=== PATIENT | female | born 2000 | race Caucasian/White ===

== ENCOUNTER 2022-07-07 07:24 | Emergency (ER) | payer SELFPAY ==
[~2022-07-07] VITALS: Wt 68.0 kg
[~2022-07-07 07:24] MED LIST: BACTRIM DS 8001 TA1 PO; DURICEF500 MG PO; MEDROL DOSEPAK4 MG PO; NAPROSYN500 MG PO
[2022-07-07 08:18] LABS: BILIRUBIN Negative (Negative); BLOOD 1+ (Negative); CLARITY Clear (Clear); COLOR Yellow (Yellow); GLUCOSE Negative (Negative); KETONE Trace (Negative); LEUKO ESTERASE 1+ (Negative); NITRITE Negative (Negative); PH 5.5 (4.5-8.0); SPECIFIC GRAVITY 1.025 (1.001-1.030)
[2022-07-07 08:58] LABS: BACTERIA 2+; CALCIUM OXALATE CRYSTALS 1+; EPITHELIAL CELLS 51-100; RBC 16-20 rbc/hpf (0-2)
[2022-07-07] MEDS ORDERED: AMOX-CLAV 875-1 EACH PO (09:03)
== END 2022-07-07 09:08 | disposition home or self-care (01) ==
LOC: ED 07:24
PROVIDERS: Internal Medicine
DX: N39.0 Urinary tract infection, site not specified (principal); Z88.2 Allergy status to sulfonamides

== ENCOUNTER 2022-07-30 06:41 | Emergency (ER) | payer SELFPAY ==
[~2022-07-30] VITALS: Ht 170.1 cm; Wt 70.3 kg
[~2022-07-30 06:41] MED LIST changes: +AMOX-CLAV 875-1 EACH PO
[2022-07-30] MEDS ORDERED: PREDNISONE20 M1 PO ×2 (07:06→07:07)
[2022-07-30] MEDS ORDERED: CEPHALEXIN500 M1 PO (07:06)
== END 2022-07-30 07:20 | disposition home or self-care (01) ==
LOC: ED 06:41
DX: J03.90 Acute tonsillitis, unspecified (principal); Z88.1 Allergy status to other antibiotic agents

== ENCOUNTER 2023-01-01 21:06 | Emergency (ER) | payer SELFPAY ==
[~2023-01-01] VITALS: Ht 170.1 cm; Wt 71.2 kg
[~2023-01-01 21:06] MED LIST changes: +CEPHALEXIN500 M1 PO; +PREDNISONE20 M1 PO
[2023-01-01] MEDS ORDERED: ONDANSETRON HYDR8 MG PO (21:15)
[2023-01-01 21:37] LABS: BILIRUBIN Negative (Negative); BLOOD 3+ (Negative); CLARITY Cloudy (Clear); COLOR Yellow (Yellow); GLUCOSE Negative (Negative); KETONE 1+ (Negative); LEUKO ESTERASE 3+ (Negative); NITRITE Negative (Negative); PH 6.5 (4.5-8.0)
[2023-01-01 21:45] LABS: RBC TNTC rbc/hpf (0-2)
[2023-01-01 21:46] LABS: BACTERIA 2+; WBC 21-30 wbc/hpf (0-5)
== END 2023-01-01 23:19 | disposition home or self-care (01) ==
LOC: ED 21:06
PROVIDERS: Internal Medicine
DX: O21.0 Mild hyperemesis gravidarum (principal); Z88.2 Allergy status to sulfonamides; Z79.899 Other long term (current) drug therapy; Z3A.08 8 weeks gestation of pregnancy